=== PATIENT | female | born 1960 | race Caucasian/White ===

== ENCOUNTER → 2020-09-04 | Outpatient (CLI) | payer BC ==
--- NOTE | 2020-09-04 13:48 | Diagnostic Imaging Report ---
INDICATION: Bilateral hand pain COMPARISON: None available. TECHNIQUE: 7 radiographs of bilateral hands dated 09/04/2020 FINDINGS: Right: No acute fracture or dislocation. No destructive osseous process. Carpal alignment is well-maintained. Minimal scattered degenerative changes are present, including the radiocarpal joint. No suspicious radiopaque foreign body. Left: No acute fracture or dislocation. No destructive osseous process. Carpal alignment is well-maintained. Scapholunate interval is within normal limits. Minimal scattered degenerative changes, including the 1st CMC joint. No suspicious radiopaque foreign body. IMPRESSION: No acute osseous abnormality with minimal scattered degenerative changes for age. Dictated by: Dictated on workstation # [id number]
== END ==
LOC: RAD FS 10:21
PROVIDERS: ATTEND Nurse Practitioner
DX: M79.641 Pain in right hand (principal); M79.642 Pain in left hand